=== PATIENT | female | born 1985 | race Caucasian/White ===

== ENCOUNTER → 2016-05-07 | Outpatient (CLI) | payer OTHER ==
--- NOTE | 2016-05-07 09:12 | REP ---
Clinical: Pain . Technique: AP, lateral, bilateral oblique views left ankle . Findings: No acute fracture or dislocation. Skeletal structures and joint spaces are intact and normal. Ankle mortise appears stable. No subcutaneous emphysema or radiodense foreign body. Impression: Normal, age appropriate left ankle ankle radiograph series. Signed by Nick Madrigal MD 05/07/2016 09:03 A
== END ==
LOC: M ADAMS 08:37
PROVIDERS: ATTEND Physician Assistant
DX: M25.572 Pain in left ankle and joints of left foot (principal)

== ENCOUNTER → 2017-12-26 | Outpatient (REF) | payer OTHER ==
[2017-12-26 12:58] LABS: FREE T4 0.83 NG/DL (0.76-1.46)
== END ==
LOC: M LABDRWAD 12:29
DX: E03.9 Hypothyroidism, unspecified (principal)
CPT/HCPCS: 84443

== ENCOUNTER → 2018-01-22 | Outpatient (CLI) | payer OTHER ==
[2018-01-22 13:53] LABS: BASO % 0.3 % (0.0-1.0); EOS # 0.2 10^3/uL (0.0-0.50); EOS % 1.5 % (0.0-3.0); HEMATOCRIT 33.7 % (36.0-47.0); HEMOGLOBIN 11.4 g/dl (12.0-15.5); LYMPH # 1.9 10^3/uL (1.5-4.5); MEAN CORPUSCULAR HGB CONC 33.8 g/dl (32.0-36.5); MEAN CORPUSCULAR VOLUME 97.7 fl (80.0-96.0); MONO # 0.7 10^3/uL (0.0-0.8); MONO % 6.3 % (0.0-5.0); NEUTROPHILS # 8.6 10^3/uL (1.8-7.7); NEUTROPHILS % 74.1 % (36.0-66.0); PLATELET COUNT, AUTOMATED 279 10^3/uL (150-450); RED BLOOD COUNT 3.45 10^6/uL (4.00-5.40); WHITE BLOOD COUNT 11.6 10^3/uL (4.0-10.0)
== END ==
LOC: M LAB 11:46
PROVIDERS: ATTEND Obstetrics & Gynecology Obstetrics
DX: O99.282 Endocrine, nutritional and metabolic diseases complicating pregnancy, second trimester (principal); Z3A.00 Weeks of gestation of pregnancy not specified

== ENCOUNTER → 2019-12-31 | Outpatient (REF) | payer OTHER | LOC: M LAB REF 12:25 | PROVIDERS: ATTEND Physician Assistant | DX: J02.9 Acute pharyngitis, unspecified (principal) ==

== ENCOUNTER → 2020-05-10 | Outpatient (CLI) | payer OTHER ==
--- NOTE | 2020-05-10 11:44 | REP ---
INDICATION: PAIN. COMPARISON: None. TECHNIQUE: Two views left hip. FINDINGS: There is no evidence of acute fracture, dislocation or intrinsic bone disease. There is no significant joint space narrowing at the hip joint. There is a smoothly marginated calcific density along the superolateral acetabulum probably representing an accessory ossicle or old avulsion fracture. IMPRESSION: There is a smoothly marginated calcific density along the superolateral acetabulum probably representing an accessory ossicle or old avulsion fracture. <Electronically signed by Jluis Burnett > 05/10/20 114
== END ==
LOC: M WUC 11:02
PROVIDERS: ATTEND Physician Assistant Medical
DX: M25.552 Pain in left hip (principal)

== ENCOUNTER → 2020-06-30 | Outpatient (REF) | payer OTHER | LOC: M SFHCWAGY 17:22 | PROVIDERS: ATTEND Obstetrics & Gynecology | DX: Z12.4 Encounter for screening for malignant neoplasm of cervix (principal) ==

== ENCOUNTER → 2022-03-28 | Outpatient (REF) | payer OTHER ==
[2022-03-28 13:12] LABS: FOLLICLE STIMULATING HORMONE 5.6 mIU/ML; PROGESTERONE 8.74 NG/ML
== END ==
LOC: M LAB REF 12:40
PROVIDERS: ATTEND Family Medicine
DX: N94.6 Dysmenorrhea, unspecified (principal)

== ENCOUNTER → 2022-05-23 | Outpatient (REF) | payer OTHER | LOC: M SFHCWAGY 10:52 | PROVIDERS: ATTEND Obstetrics & Gynecology | DX: Z01.419 Encounter for gynecological examination (general) (routine) without abnormal findings (principal) ==